=== PATIENT | female | born 1970 | race Caucasian/White ===

== ENCOUNTER 2020-06-10 13:16 | Emergency (ER) | payer MEDICAID ==
[~2020-06-10] VITALS: Ht 160 cm; Wt 127.3 kg
[2020-06-10] MEDS ORDERED: ondansetron/PF 4mg/2ml inj IV ONE ×2 (13:55→14:05)
[2020-06-10] MEDS ORDERED: normal saline 1000ML IV soln IVB ONE (13:55)
--- NOTE | 2020-06-10 14:00 | NUR ---
Note tylaura in ED - 06/10/20 at 1451 by FIOR pt. was brought in in hand cuffs. pt. yelling and saying things like " i have no mother" I am 89 years old and it is documented" pt. keeps coming out of her room and is not redirectable. pt. asked to go back back in her room and she took an ink pen and slamed it into the damon board that was in the room. the pin was pulled out of the damon board and both the pen and the damon board were removed from the room.
[2020-06-10] MEDS ORDERED: morphine 4 MG/ML inj SYRINge IV ONE (14:05)
[2020-06-10 14:24] LABS: BASOPHILS # (AUTO) 0.1 X10'3 (0-0.2); BASOPHILS % (AUTO) 0.8 % (0-1); EOSINOPHILS % (AUTO) 0.4 % (0-6); HEMOGLOBIN 14.5 g/dl (12.0-16.0); LYMPHOCYTES # (AUTO) 2.3 X10'3 (1.1-4.8); LYMPHOCYTES % (AUTO) 21.2 % (21-51); MEAN CORPUSCULAR HEMOGLOBIN 29.9 PG (27.0-31.0); MEAN CORPUSCULAR HGB CONC 33.8 g/dL (33.0-36.5); MEAN CORPUSCULAR VOLUME 88.4 FL (78-98); MEAN PLATELET VOLUME 7.6 FL (7.4-10.4); MONOCYTES % (AUTO) 9.1 % (2-12); NEUTROPHILS # (AUTO) 7.4 X10'3 (1.8-7.7); NEUTROPHILS % (AUTO) 68.5 % (42-75); PLATELET COUNT 282 X10'3 (140-440); RED BLOOD COUNT 4.86 X10'6 (4.20-5.60); RED CELL DISTRIBUTION WIDTH 14.4 % (11.5-14.5); WHITE BLOOD COUNT 10.7 X10'3 (4.5-11.0)
[2020-06-10 14:43] LABS: ALANINE AMINOTRANSFERASE 27 U/L (12-78); ALBUMIN 3.5 G/DL (3.4-5.0); ALBUMIN/GLOBULIN RATIO 0.8 (1.1-1.5); ALKALINE PHOSPHATASE 69 IU/L (46-116); ANION GAP 10 (8-16); ASPARTATE AMINO TRANSFERASE 22 U/L (10-37); BILIRUBIN,TOTAL 0.3 MG/DL (0.1-1.0); BLOOD UREA NITROGEN 9 MG/DL (7-18); BUN/CREATININE RATIO 7.8 (6.6-38.0); CALCIUM 8.7 MG/DL (8.5-10.1); CHLORIDE 105 MMOL/L (99-107); CREATININE 1.16 MG/DL (0.40-0.90); GLUCOSE 111 MG/DL (70-104); LIPASE 95 U/L (73-393); SODIUM 142 MMOL/L (135-145); TOTAL PROTEIN 7.8 G/DL (6.4-8.2); eGFR 49 ML/MIN
[2020-06-10 15:39] LABS: URINE HCG NEGATIVE (NEG)
[2020-06-10 15:40] LABS: CLARITY,URINE CLEAR (Clear); COLOR,URINE YELLOW (Yellow); GLUCOSE, URINE NEGATIVE (Neg); KETONES,URINE NEGATIVE (Neg); LEUKOCYTE ESTERASE ,URINE NEGATIVE (Neg); NITRITES, URINE NEGATIVE (Neg); OCCULT BLOOD,URINE TRACE-INTACT (Neg); PROTEIN,URINE NEGATIVE (Neg); UROBILINOGEN,URINE 0.2 E.U/dL (0.2-1.0)
[2020-06-10 15:54] LABS: UA COLLECTION TYPE CLN CATCH MIDSTREAM
[2020-06-10 15:55] LABS: BACTERIA,URINE NONE SEEN /HPF (Neg); RBC,URINE 0-2 /HPF (0-2); SQUAMOUS EPITHELIAL CELL,UR NONE SEEN /LPF (FEW); WBC,URINE NONE SEEN /HPF (0-4)
[2020-06-10 16:56] VITALS: BP 104/54
== END 2020-06-10 16:58 | disposition home or self-care (01) ==
LOC: ER 13:17
DX: K63.89 Other specified diseases of intestine (principal); I50.9 Heart failure, unspecified; Z90.49 Acquired absence of other specified parts of digestive tract; Z90.710 Acquired absence of both cervix and uterus; Z98.890 Other specified postprocedural states; Z88.8 Allergy status to other drugs, medicaments and biological substances
CPT/HCPCS: 36415; 74176; 80053; 81001; 81025; 83690; 85025; 99284; J7030

== ENCOUNTER 2021-02-21 07:33 | Day surgery (SDC) | payer MEDICAID ==
[2021-02-21] VITALS (16 sets, daily range): BP systolic 90–111; BP diastolic 40–77
[~2021-02-21] VITALS: Ht 162.6 cm; Wt 138.6 kg
[2021-02-21] MEDS ORDERED: MIDAZolam 1mg/ml 10ml vial IV ONE (08:00)
[2021-02-21] MEDS ORDERED: fentaNYL/PF 50MCG/1 ML 2ML syringe IV ONE (08:00)
[2021-02-21] MEDS ORDERED: normal saline 1000ml 1,000 ML IV SCH (08:00)
[2021-02-21] MEDS ORDERED: FURO20TA4 PO (08:03)
[2021-02-21] MEDS ORDERED: ASPI-1053 PO (08:03)
[2021-02-21] MEDS ORDERED: METO-384 PO (08:03)
[2021-02-21] MEDS ORDERED: OMEG1CAP13 PO (08:03)
[2021-02-21] MEDS ORDERED: VENL75CA61 PO (08:03)
[2021-02-21] MEDS ORDERED: THYR90TA12 PO (08:03)
[2021-02-21] MEDS ORDERED: L. A1CAP13 PO (08:03)
[2021-02-21] MEDS ORDERED: CETI10TA14 PO (08:03)
[2021-02-21] MEDS ORDERED: FLUT16SP26 INH (08:03)
[2021-02-21] MEDS ORDERED: ALBU90AE2 INH (08:03)
[2021-02-21] MEDS ORDERED: LOSA50TA64 PO (08:03)
[2021-02-21] MEDS ORDERED: OMEP-50 PO (08:04)
[2021-02-21] MEDS ORDERED: FAMO40TA7 PO (08:04)
[2021-02-21 08:22] LABS: ALBUMIN 3.3 G/DL (3.4-5.0); ANION GAP 9 (8-16); BLOOD UREA NITROGEN 13 MG/DL (7-18); BUN/CREATININE RATIO 13.3 (6.6-38.0); CHLORIDE 106 MMOL/L (99-107); CREATININE 0.98 MG/DL (0.40-0.90); GLUCOSE 116 MG/DL (70-104); MAGNESIUM 2.1 MG/DL (1.5-2.4); POTASSIUM 3.9 MMOL/L (3.5-5.1); SODIUM 143 MMOL/L (135-145); TOTAL CARBON DIOXIDE 27.6 MMOL/L (24-32); eGFR 60 ML/MIN
[2021-02-21 08:24] LABS: BASOPHILS # (AUTO) 0.1 X10'3 (0-0.2); BASOPHILS % (AUTO) 0.9 % (0-1); EOSINOPHILS % (AUTO) 0.5 % (0-6); HEMATOCRIT 38.5 % (35.0-45.0); LYMPHOCYTES # (AUTO) 2.4 X10'3 (1.1-4.8); MEAN CORPUSCULAR HEMOGLOBIN 28.8 PG (27.0-31.0); MEAN CORPUSCULAR HGB CONC 33.6 g/dL (33.0-36.5); MEAN CORPUSCULAR VOLUME 85.6 FL (78-98); MEAN PLATELET VOLUME 7.6 FL (7.4-10.4); MONOCYTES # (AUTO) 0.7 X10'3 (0-0.9); NEUTROPHILS # (AUTO) 4.7 X10'3 (1.8-7.7); NEUTROPHILS % (AUTO) 59.6 % (42-75); PLATELET COUNT 287 X10'3 (140-440); RED CELL DISTRIBUTION WIDTH 14.5 % (11.5-14.5); WHITE BLOOD COUNT 7.9 X10'3 (4.5-11.0)
== END 2021-02-21 10:30 | disposition home or self-care (01) ==
LOC: SSTAY O 07:33
PROVIDERS: ATTEND Internal Medicine Cardiovascular Disease
DX: I34.0 Nonrheumatic mitral (valve) insufficiency (principal); R06.00 Dyspnea, unspecified; I27.20 Pulmonary hypertension, unspecified
CPT/HCPCS: 36415; 80048; 83735; 85025; 85610; 93312; 93325; 94799; J2250; J3010; J7030

== ENCOUNTER 2022-12-14 08:16 | Day surgery (SDC) | payer MEDICAID ==
[~2022-12-14] VITALS: Ht 160 cm; Wt 143.2 kg
[2022-12-14] VITALS (20 sets, daily range): BP systolic 90–134; BP diastolic 37–77
[~2022-12-14 08:16] MED LIST: ALBU90AE2 INH; ASPI-1053 PO; CETI10TA14 PO; FAMO40TA7 PO; FLUT16SP26 INH; FURO20TA4 PO; L. A1CAP13 PO; LOSA50TA64 PO; METO-384 PO; OMEG-5 PO; OMEP20CA16 PO; THYR90TA12 PO; VENL75CA61 PO
[2022-12-14] MEDS ORDERED: normal saline 1000ml 1,000 ML IV SCH (08:50)
[2022-12-14] MEDS ORDERED: MIDAZolam 1mg/ml 10ml vial IV ONE (08:50)
[2022-12-14] MEDS ORDERED: fentaNYL/PF 50MCG/1 ML 2ML syringe IV ONE (08:50)
[2022-12-14 09:02] LABS: BASOPHILS # (AUTO) 0.1 X10'3 (0-0.2); BASOPHILS % (AUTO) 0.9 % (0-1); EOSINOPHILS # (AUTO) 0.2 X10'3 (0-0.9); EOSINOPHILS % (AUTO) 2.2 % (0-6); HEMATOCRIT 39.6 % (35.0-45.0); LYMPHOCYTES # (AUTO) 2.3 X10'3 (1.1-4.8); LYMPHOCYTES % (AUTO) 29.7 % (21-51); MEAN CORPUSCULAR HEMOGLOBIN 28.2 PG (27.0-31.0); MEAN CORPUSCULAR HGB CONC 32.9 g/dL (33.0-36.5); MEAN CORPUSCULAR VOLUME 85.5 FL (78-98); MEAN PLATELET VOLUME 7.7 FL (7.4-10.4); MONOCYTES # (AUTO) 0.7 X10'3 (0-0.9); MONOCYTES % (AUTO) 8.8 % (2-12); NEUTROPHILS # (AUTO) 4.5 X10'3 (1.8-7.7); NEUTROPHILS % (AUTO) 58.4 % (42-75); PLATELET COUNT 248 X10'3 (140-440); RED BLOOD COUNT 4.63 X10'6 (4.20-5.60); RED CELL DISTRIBUTION WIDTH 15.5 % (11.5-14.5); WHITE BLOOD COUNT 7.6 X10'3 (4.5-11.0)
[2022-12-14] MEDS ORDERED: CHOL50004 PO (09:36)
[2022-12-14] MEDS ORDERED: VENL150C58 PO (09:36)
[2022-12-14] MEDS ORDERED: FURO40TA4 PO (09:36)
[2022-12-14] MEDS ORDERED: OLOP5DRO26 EACHEYE (09:36)
[2022-12-14] MEDS ORDERED: GABA-530 PO (09:36)
[2022-12-14] MEDS ORDERED: SPIR25TA5 PO (09:36)
[2022-12-14] MEDS ORDERED: CYCL-1 PO (09:36)
[2022-12-14 09:43] LABS: ALBUMIN 3.4 G/DL (3.4-5.0); ANION GAP 10 (8-16); BLOOD UREA NITROGEN 14 MG/DL (7-18); BUN/CREATININE RATIO 12.6 (6.6-38.0); CALCIUM 9.1 MG/DL (8.5-10.1); CHLORIDE 103 MMOL/L (99-107); CREATININE 1.11 MG/DL (0.40-0.90); GLUCOSE 124 MG/DL (70-104); MAGNESIUM 1.9 MG/DL (1.5-2.4); POTASSIUM 3.8 MMOL/L (3.5-5.1); SODIUM 139 MMOL/L (135-145); TOTAL CARBON DIOXIDE 26.2 MMOL/L (24-32); eGFR 51 ML/MIN
[2022-12-14] MEDS ORDERED: glycopyrrolate 0.2mg/ml inj IV ONE (09:55)
== END 2022-12-14 13:05 | disposition home or self-care (01) ==
LOC: SSTAY O 08:16
PROVIDERS: ATTEND Internal Medicine Cardiovascular Disease
DX: I08.1 Rheumatic disorders of both mitral and tricuspid valves (principal); I11.0 Hypertensive heart disease with heart failure; I50.9 Heart failure, unspecified; J45.909 Unspecified asthma, uncomplicated; I27.20 Pulmonary hypertension, unspecified; E11.9 Type 2 diabetes mellitus without complications; E66.9 Obesity, unspecified; Z68.43 Body mass index [BMI] 50.0-59.9, adult; Z98.84 Bariatric surgery status; Z90.710 Acquired absence of both cervix and uterus; Z88.8 Allergy status to other drugs, medicaments and biological substances
CPT/HCPCS: 36415; 80048; 83735; 85025; 85610; 93312; 93325; 94760; J2250; J3010; J3490; J7030; A4620